=== PATIENT | male | born 1975 ===

== ENCOUNTER 2019-06-10 18:26 | Emergency (ER) | payer OTHER ==
--- NOTE | 2019-06-10 18:37 | Event Note ---
ED Screening Note Date of service: 06/10/19 Time: 18:33 ED Screening Note: This is a 44 y.o. M. that presents to the ER with pain in right side of neck and RUE. Patient reports electrical shock around 1130 while at work. Patient was lifting pipes into a ceiling and accidentally grabbed an electrical wire to avoid falling when he got shocked. He was wearing gloves. Reports pain started when he arrived home and couldn't work Wednesday. This initial assessment/diagnostic orders/clinical plan/treatment(s) is/are subject to change based on patients health status, clinical progression and re- assessment by fellow clinical providers in the ED. Further treatment and workup at subsequent clinical providers discretion. Patient/guardian urged not to elope from the ED as their condition may be serious if not clinically assessed and managed. Initial orders include:
[2019-06-10] MEDS ORDERED: NORCO 5/325 PO ONE (19:11)
--- NOTE | 2019-06-10 19:55 | XRay Report ---
RIGHT ELBOW 3 VIEWS INDICATION: elbow pain s/p fall. COMPARISON: No relevant prior imaging study available. FINDINGS: There is no significant skeletal abnormality. No joint effusion is seen. No focal soft tissue swellin g or foreign bodies. IMPRESSION: 1. No acute findings. CERVICAL SPINE SERIES 4 VIEWS INDICATION: Cervical neck pain after fall. COMPARISON: No relevant prior imaging study available. FINDINGS: No acute fracture or subluxation is seen. There is no prevertebral soft tissue swelling. There is mil d spondylosis at C6-7. IMPRESSION: 1. No acute findings. RIGHT HUMERUS 2 VIEWS INDICATION: Right arm pain after fall. COMPARISON: No relevant prior imaging study available. FINDINGS: No fracture or dislocation is seen. No soft tissue swelling or foreign bodies. IMPRESSION: 1. No acute findings. Signer Name: Niranjan Pringle MD Signed: 06/10/2019 7:51 PM Workstation Name: [id number]
[2019-06-10 19:57] LABS: Basophils # (Auto) 0.1 K/mm3 (0.0-0.1); Basophils % (Auto) 2.5 % (0.0-1.8); Eosinophils # (Auto) 0.1 K/mm3 (0.0-0.4); Hemoglobin 16.2 gm/dl (11.8-15.2); Lymphocytes # (Auto) 1.6 K/mm3 (1.2-5.4); Lymphocytes % (Auto) 32.7 % (13.4-35.0); Mean Corpuscular HGB Conc 34 % (32-34); Mean Corpuscular Volume 97 fl (84-94); Monocytes # (Auto) 0.4 K/mm3 (0.0-0.8); Monocytes % (Auto) 8.3 % (0.0-7.3); Platelet Count 173 K/mm3 (140-440); Red Blood Count 4.94 M/mm3 (3.65-5.03); Red Cell Distribution Width 13.5 % (13.2-15.2)
--- NOTE | 2019-06-10 20:05 | XRay Report ---
CHEST PA AND LATERAL VIEWS INDICATION: Chest pain. COMPARISON: None. FINDINGS: Support devices: None. Heart: Within normal limits. Lungs/Pleura: No acute pulmonary or pleural findings. IMPRESSION: 1. No significant abnormality. Signer Name: iNranjan Pringle MD Signed: 06/10/2019 8:00 PM Workstation Name: [id number]
[2019-06-10 20:38] LABS: BUN/Creatinine Ratio 21; Blood Urea Nitrogen 17 mg/dL (9-20); Calcium 8.7 mg/dL (8.4-10.2); Hemolysis Index 15
--- NOTE | 2019-06-10 21:20 | Emergency Department Report ---
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 Pain described as burning aching pain exacerbated by movement and deep breathing patient states palpitations on yesterday there is no fever or chills no nausea vomiting no weakness no chest pain at this time Onset/Timin -: days(s) Location: chest, upper extremity Severity scale (0 -10): 8 Quality: burning, aching Consistency: constant Improves with: none Worsens with: none Associated Symptoms: chest pain Treatments Prior to Arrival: none - Related Data Previous Rx's Medication Instructions Recorded Last Taken Type Acetaminophen [Acetaminophen TAB] 1,000 mg PO Q6HR PRN #30 tablet 06/10/19 Unknown Rx Allergies Allergy/AdvReac Type Severity Reaction Status Date / Time No Known Allergies Allergy Verified 06/10/19 18:34 ED Review of Systems ROS: Stated complaint: NECK/SHOULDER/ARM Other details as noted in HPI Constitutional: denies: chills, fever Eyes: denies: eye pain, eye discharge, vision change ENT: denies: ear pain, throat pain Respiratory: denies: cough, shortness of breath, wheezing Cardiovascular: chest pain, palpitations. denies: dyspnea on exertion, paroxysmal nocturnal dyspnea Endocrine: no symptoms reported Gastrointestinal: denies: abdominal pain, nausea, diarrhea Genitourinary: denies: urgency, dysuria, frequency, hematuria, discharge, testicular pain, testicular mass Musculoskeletal: myalgia, other (bilat arm pain and tingling ). denies: back pain, joint swelling, arthralgia Skin: denies: rash, lesions Neurological: denies: headache, weakness, paresthesias Psychiatric: denies: anxiety, depression Hematological/Lymphatic: denies: easy bleeding, easy bruising ED Past Medical Hx - Medications Home Medications: Home Medications Medication Instructions Recorded Confirmed Last Taken Type Acetaminophen [Acetaminophen TAB] 1,000 mg PO Q6HR PRN #30 tablet 06/10/19 Unknown Rx ED Physical Exam - General Limitations: No Limitations General appearance: alert, in no apparent distress - Head Head exam: Present: atraumatic, normocephalic - Eye Eye exam: Present: normal appearance, PERRL, EOMI Pupils: Present: normal accommodation - ENT ENT exam: Present: normal orophraynx, mucous membranes moist, TM's normal bilaterally, normal external ear exam - Neck Neck exam: Present: normal inspection, full ROM. Absent: tenderness, meningismus, lymphadenopathy, thyromegaly - Respiratory Respiratory exam: Absent: wheezes, stridor, chest wall tenderness - Cardiovascular Cardiovascular Exam: Present: regular rate, normal rhythm, normal heart sounds. Absent: systolic murmur, diastolic murmur, rubs, gallop - Expanded Cardiovascular Exam Expanded Peripheral pulses: 2+: Carotid (R), Carotid (L), Radial (R), Radial (L), Dorsalis Pedis (R), Dorsalis Pedis (L) - GI/Abdominal GI/Abdominal exam: Present: soft, normal bowel sounds. Absent: distended, tenderness, guarding, rebound, rigid, bruit, hernia - Rectal Rectal exam: Present: deferred - Extremities Exam Extremities exam: Present: normal inspection, full ROM, normal capillary refill. Absent: tenderness, pedal edema, joint swelling, calf tenderness - Back Exam Back exam: Present: normal inspection, full ROM, muscle spasm. Absent: tenderness, CVA tenderness (R), CVA tenderness (L), paraspinal tenderness, vertebral tenderness, rash noted - Neurological Exam Neurological exam: Present: alert, oriented X3, CN II-XII intact, normal gait, reflexes normal. Absent: motor sensory deficit - Expanded Neurological Exam Expanded Patient oriented to: Present: person, place, time Speech: Present: fluid speech Cranial nerves: EOM's Intact: Normal, Gag Reflex: Normal, Tongue Deviation: Normal, Nystagmus: Normal, Facial Sensation: Normal Cerebellar function: Finger to Nose: Normal, Heel to Covarrubias: Normal, Romberg: Normal Upper motor neuron: Rafael Neglect: Normal, Pronator Drift: Normal, Babinski Sign: Normal, Sensory Extinction: Normal Sensory exam: Upper Extremity Light Touch: Normal, Upper Extremity Pin Prick: Normal, Upper Extremity Temperature: Normal, UE 2 Point Discrimination: Normal, Lower Extremity Light Touch: Normal, Lower Extremity Pin Prick: Normal, Lower Extremity Temperature: Normal, LE 2 Point Discrimination: Normal Motor strength exam: RUE: 5, LUE: 5, RLE: 5, LLE: 5 DTR: bicep (R): 2+, bicep (L): 2+, tricep (R): 2+, tricep (L): 2+, ankle (R): 2+, ankle (L): 2+ Best Eye Response (Trish): (4) open spontaneously Best Motor Response (Trish): (6) obeys commands Best Verbal Response (Trish): (5) oriented Trish Total: 15 - Psychiatric Psychiatric exam: Present: normal affect, normal mood - Skin Skin exam: Present: warm, dry, intact, normal color. Absent: rash ED Course Vital Signs 06/10/19 06/10/19 18:44 19:57 Temperature 97.8 F Pulse Rate 68 Respiratory 16 16 Rate Blood Pressure 126/77 [Left] O2 Sat by Pulse 98 Oximetry ED Medical Decision Making - Lab Data Result diagrams: 06/10/19 19:43 06/10/19 19:43 Lab Results 06/10/19 06/10/19 Range/Units 19:43 19:43 WBC 4.9 (4.5-11.0) K/mm3 RBC 4.94 (3.65-5.03) M/mm3 Hgb 16.2 H (11.8-15.2) gm/dl Hct 48.0 H (35.5-45.6) % MCV 97 H (84-94) fl MCH 33 H (28-32) pg MCHC 34 (32-34) % RDW 13.5 (13.2-15.2) % Plt Count 173 (140-440) K/mm3 Lymph % (Auto) 32.7 (13.4-35.0) % Boyd % (Auto) 8.3 H (0.0-7.3) % Eos % (Auto) 2.0 (0.0-4.3) % Baso % (Auto) 2.5 H (0.0-1.8) % Lymph # 1.6 (1.2-5.4) K/mm3 Boyd # 0.4 (0.0-0.8) K/mm3 Eos # 0.1 (0.0-0.4) K/mm3 Baso # 0.1 (0.0-0.1) K/mm3 Seg Neutrophils % 54.5 (40.0-70.0) % Seg Neutrophils # 2.7 (1.8-7.7) K/mm3 Sodium 139 (137-145) mmol/L Potassium 4.5 (3.6-5.0) mmol/L Chloride 101.7 (98-107) mmol/L Carbon Dioxide 27 (22-30) mmol/L Anion Gap 15 mmol/L BUN 17 (9-20) mg/dL Creatinine 0.8 (0.8-1.5) mg/dL Estimated GFR > 60 ml/min BUN/Creatinine Ratio 21 % Glucose 97 (75-100) mg/dL Calcium 8.7 (8.4-10.2) mg/dL Total Creatine Kinase 175 H (55-170) units/L CK-MB (CK-2) 3.0 (0.0-4.0) ng/mL CK-MB (CK-2) Rel Index 1.7 (0-4) Troponin T < 0.010 (0.00-0.029) ng/mL - EKG Data EKG shows normal: sinus rhythm, axis, intervals, QRS complexes, ST-T waves Rate: normal, tachycardia, bradycardia - EKG Data When compared to previous EKG there are: previous EKG unavailable Interpretation: normal EKG (ekg interp by ed attending NSR No ST Elevated LA, ) - Radiology Data Radiology results: report reviewed, image reviewed All Xrrays normal no fractures no soft tissue inury - Medical Decision Making ekg normal, cxr normal, trop: <0.01 x 2, ck, ckmb normal, urine normal there is no rhamdomyelitis hr is 74 NSR no ectopy there are no palpitations since 1 day ago there is no numbness no tingling no weakness no lynn, plan follow up with pcp , tylenol prn pain pt verbalized agreement and understanding of discharge plan. Critical care attestation.: If time is entered above; I have spent that time in minutes in the direct care of this critically ill patient, excluding procedure time. ED Disposition Clinical Impression: Electric shock Qualifiers: Encounter type: initial encounter Qualified Code(s): T75.4XXA - Electrocution, initial encounter Disposition: - TO HOME OR SELFCARE Is pt being admited?: No Does the pt Need Aspirin: No Condition: Stable Instructions: Electrical Lynn in Adults (ED) Prescriptions: Acetaminophen [Acetaminophen TAB] 1,000 mg PO Q6HR PRN #30 tablet PRN Reason: Pain , Severe (7-10) Referrals: MEGAN SLADE MD [Primary Care Provider] - 3-5 Days Forms: Work/School Release Form(ED) Time of Disposition: 23:19
[2019-06-10] MEDS ORDERED: NACL 0.9% 1000 ML 1,000 ML IV ONE (21:27)
[2019-06-10 22:45] LABS: Bilirubin,Urine NEG (Negative); Blood,Urine NEG (Negative); Color,Urine Yellow (Yellow); Mucus,Urine FEW /HPF; Protein,Urine <15 mg/dL mg/dL (Negative); Urobilinogen,Urine < 2.0 mg/dL (<2.0); WBC,Urine < 1.0 /HPF (0.0-6.0)
[2019-06-10 23:35] VITALS: BP 132/85
== END 2019-06-10 23:34 | disposition home or self-care (01) ==
LOC: ED 18:26
DX: T75.4XXA Electrocution, initial encounter (principal); W86.8XXA Exposure to other electric current, initial encounter; Y93.H3 Activity, building and construction; Y92.69 Other specified industrial and construction area as the place of occurrence of the external cause; Y99.8 Other external cause status
CPT/HCPCS: 36415; 71046; 72040; 73060; 73070; 80048; 81001; 82550; 82553; 84484; 85025; 93005; 93010; 99284; J7030; 96360